=== PATIENT | female | born 1965 | race Caucasian/White ===

== ENCOUNTER → 2016-05-05 | Outpatient (CLI) | payer BC, OTHER | LOC: RAD 20:31 | PROVIDERS: ATTEND Specialist | DX: G35 Multiple sclerosis (principal) | CPT/HCPCS: 82565; 70553; A9577 ==

== ENCOUNTER → 2016-05-08 | Outpatient (CLI) | payer BC, OTHER ==
[2016-05-08 14:21] LABS: HEMATOCRIT 43.5 % (36.0-47.0); HEMOGLOBIN 14.7 g/dL (12.0-15.5); HGB HCT DIFFERENCE 0.6; MEAN CORPUSCULAR HEMOGLOBIN 32.1 pg (27.0-33.4); MEAN CORPUSCULAR HGB CONC 33.9 g/dL (32.0-36.0); MEAN CORPUSCULAR VOLUME 95 fl (80-97); RED CELL DISTRIBUTION WIDTH 13.8 % (11.5-14.0); WHITE BLOOD COUNT 5.1 10^3/uL (4.0-10.5)
[2016-05-08 14:44] LABS: POTASSIUM 5.1 mmol/L (3.6-5.0); SODIUM 142.3 mmol/L (137-145)
== END ==
LOC: OD 12:59
PROVIDERS: ATTEND Specialist
DX: G35 Multiple sclerosis (principal)
CPT/HCPCS: 36415; 80051; 85027

== ENCOUNTER → 2016-07-19 | Outpatient (CLI) | payer BC, OTHER | LOC: OD 13:06 | PROVIDERS: ATTEND Urology | DX: N20.0 Calculus of kidney (principal) | CPT/HCPCS: 74000 ==

== ENCOUNTER → 2016-08-08 | Outpatient (CLI) | payer BC, OTHER ==
--- NOTE | 2016-08-08 10:25 | ST Modified Barium Swallow ---
Recommendation - Recommendations Recommendations: 1) DIET: recommend mechanical soft foods cut meats and thin liquids. 2) STRATEGIES- alternate bites and sips to clear trace-mild residuals of puree and soft foods from valleculae. 3) Recommend consider OP ST eval and brief coarse of treatment for pt reports of mild intermittent dysarthria and observed mild oropharyngeal dysphagia during MBSS. 4) Pt reports some difficulty with larger pills which she states cannot be crushed, ST recommends taking with puree. SUMMARY: Pt presents witha mild oropharyngeal dysphagia characterized by mildly reduced base of tongue and pressure generation resulting in trace residuals of soft solids and mild residuals of puree, which was observed to clear with liquid wash. No penetration or aspiration observed during MBSS. Medical Diagnoses - Medical Diagnoses Medical Diagnosis Description & ICD-10 Code(s): dysphagia R13.10 Other Medical Diagnoses/Co-Morbidities: pt reports-MS, anxiety, intermittent slurred speech - ICD-10 Tx Diagnosis Coding (1) Dysphagia, oropharyngeal phase ICD-10 Code(s): R13.12 - DYSPHAGIA, OROPHARYNGEAL PHASE ST Modified Barium Swallow - General Date: 08/08/16 Referring Physician: Dr Figueroa Risks/Precautions: None Date of Onset: 05/11/16 Reason for Referral: dysphagia - History History obtained from: Patient -: Medical - Pt reports history of MS with recent 2-4 months of difficulty swallowing pills, meats, and "tough" foods. Pt reports coughing occasionally with PO intake, and "rarely" coughing at night on "saliva". Pt reports globus sensation in mid neck with PO intake. Pt denies history of PNA or bronchitis and denies choking while eating. Pt reports taking medication for reflux however pt denies reflux, pt reports doctor recommended medication and she has "just been taking". Pt also reports within the last year she has noted intermittent slurred speech. PMHx: MS diagnosed in 1998, "possible anxiety", and "inflammation of the ribs and sternum". Medications: Aspirin, Nexium, keppra, zonegran, klonopin, diazepam, adderall, stadol Allergies: none reported - Functional Status Prior Functional Status: INDEPENDENT: feeding Current Functional Limitations: feeding - Subjective Patient/caregiver goal(s): safe swallow, r/o aspiration Cognitive-Linguistic Function: WNL Speech Intelligibility: Mildly dysarthric - pt's speech presents mostly at 100% intelligible, however noted x3 throughout history intake impresice consonants and slurred speech which were observed to mildly reduce speech intelligibility. Current Nutritional Means: PO Current PO diet: Regular Current symptoms: Coughing, c/o Globus sensation Pain: 0/5 - Objective Assessment: Upright, Left Lateral - Food Trials Used Food trials used: Thin liquids, Pureed, Soft solids The patient: Was Able to Self Feed - Oral-Motor Skills Dentition: Full Velo-pharyngeal function: Unremarkable Laryngeal Function: Volitional Cough, Volitional Swallow - Assessment Oral prep: Normal Labial closure: Adequate Leakage: None Mastication: Adequate Lingual Movement: Normal Oral stage: Normal for this Procedure - Pharyngeal Stage Initiation of Pharyngeal Stage Reflex: Normal Decreased laryngeal elevation: No Reduced Velopharyngeal Closure: no Reduced pressure generation: Yes - mild reduced tongue-based retraction: Yes - mild Pre-swallow pooling in valleculae: None Pre-Swallow pooling in pyriforms: None Reduced Thyro-Hyoid approximation: No Reduced epiglottic excursion: No Reduced pharyngeal peristalsis/contraction: No Post-swallow residulas vallecular: Mild - trace-mild Post-Swallow residuals in pyriforms: None - Fall Risk Assessment Medications/Conditions that increase fall risks include: Antidepressants, sedatives, anti-arrhythmic, diuretic, benzodiazipenes, neuroleptics. BP regulation problems, cardiac problems, balance or gait deficits, neurological problems. Is patient considered at risk for falls: no Fall Risk Actions Taken: No action needed - Behavioral Observations During evaluation process patient: was pleasant, was cooperative, able to answer questions, provided medical history - Treatment / Educational Needs: Treatment/Education Needs: Treatment consisted of patient education on the role of the Speech Pathologist. Patient's plan of care and golas were communicated as well as scheduling and attendance policies. Recommendations for initial home program were shared. Patient demonstrated understanding and verbalized agreement. Initial home program recommendations: Pt was provided with verbal and written education on mechanical soft guidlines, reflux precautions, and recommendations from MBSS. - Impression/Summary Laryngeal Penetration: No Tracheal Aspiration: no Patient presents with: Oral-Pharyngeal dysph. - mild Risk of Aspiration: Minimal - Recommendations NPO: no Solid diet recommendations: Mechanical Soft, Chopped Meat Liquid Diet Modification: Thin Pt/Family education and followup with MD: Yes Dysphagia therapy with INTELLIGENCE OFFICER: yes, dysphagia therapy Recommended techniques: Fully Upright During Meal, Alternate Bites/Sips Supervision: Independent Information, Precautions and Recommendations: Patient (Written), Patient (Verbal ) - Time Total Time: 30 - Plan of Care Strategies to optimize patient understanding include:: ongoing assessment of educational needs, implementation of educational strategies, and re-education. - - -: Thank you for the opportunity to work with this patient and his/her family. Should you have any questions about this patient's plan or progress, I can be reached at [phone]. Charge G Code? - - -: No
== END ==
LOC: RAD 07:07
PROVIDERS: ATTEND Specialist
DX: R13.10 Dysphagia, unspecified (principal)
CPT/HCPCS: 74230

== ENCOUNTER → 2016-09-21 | Outpatient (CLI) | payer BC, OTHER ==
[2016-09-21 15:21] VITALS: BP 119/74
--- NOTE | 2016-09-22 08:50 | RADIOLOGY REPORT (SQ) ---
EXAM DESCRIPTION: MRI HEAD COMBO COMPLETED DATE/TIME: 09/21/2016 9:44 pm REASON FOR STUDY: MULTIPLE SCLEROSIS G35 MULTIPLE SCLEROSIS COMPARISON: 05/05/2016 TECHNIQUE: Multiplanar imaging includes noncontrasted T1, T2, FLAIR, diffusion with ADC map and post gadolinium contrast T1 sequences. Images stored on PACS. CONTRAST TYPE AND DOSE: 15 mL Multihance. RENAL FUNCTION: GFR > 60. LIMITATIONS: None. FINDINGS: ANATOMY: No anomalies. Normal vascular flow voids. Pituitary fossa normal. CSF SPACES: Normal in size and contour. No hemorrhage. CEREBRUM: 6-8 subcentimeter foci of increased signal in the white matter primarily frontal lobe. No new lesions. None of the lesions enhance. No hemorrhage or mass effect. POSTERIOR FOSSA: No signal alteration. No hemorrhage. No edema, masses, or mass effect. Internal deuce tory canals, cerebellopontine angles, mastoids normal. No enhancing lesions. No abnormal enhancement post contrast. DIFFUSION IMAGING: Negative for acute or subacute infarction. ORBITS: No masses. Globes normal. PARANASAL SINUSES: No fluid levels. Mucosa normal. OTHER: No other significant finding. IMPRESSION: Quiescent white matter lesions consistent with clinical history. No evidence of active demyelination. TECHNICAL DOCUMENTATION: JOB ID: [id number]- All Rights Reserved
== END ==
LOC: RAD 19:31
PROVIDERS: ATTEND Specialist
DX: G35 Multiple sclerosis (principal)
CPT/HCPCS: 82565; 70553; A9577

== ENCOUNTER → 2016-09-25 | Outpatient (CLI) | payer BC, OTHER ==
[2016-09-27 07:05] LABS: LYME DISEASE IGG AND IGM AB <0.91 ISR (0.00-0.90)
== END ==
LOC: OD 11:34
PROVIDERS: ATTEND Specialist
DX: R51 Headache (principal); G35 Multiple sclerosis; E53.8 Deficiency of other specified B group vitamins
CPT/HCPCS: 36415; 80074; 82607; 86617; 86618

== ENCOUNTER → 2016-10-09 | Outpatient (CLI) | payer BC, OTHER ==
[2016-10-09 13:12] LABS: HEMATOCRIT 41.8 % (36.0-47.0); HEMOGLOBIN 13.7 g/dL (12.0-15.5); HGB HCT DIFFERENCE -0.7; MEAN CORPUSCULAR HEMOGLOBIN 31.2 pg (27.0-33.4); MEAN CORPUSCULAR HGB CONC 32.7 g/dL (32.0-36.0); MEAN CORPUSCULAR VOLUME 95 fl (80-97); RED BLOOD COUNT 4.39 10^6/uL (3.72-5.28); RED CELL DISTRIBUTION WIDTH 13.3 % (11.5-14.0); WHITE BLOOD COUNT 6.5 10^3/uL (4.0-10.5)
== END ==
LOC: OD 12:24
PROVIDERS: ATTEND Specialist
DX: G35 Multiple sclerosis (principal)
CPT/HCPCS: 36415; 80074; 84460; 85027

== ENCOUNTER → 2016-10-12 | Outpatient (CLI) | payer BC, OTHER ==
--- NOTE | 2016-10-12 12:20 | RADIOLOGY REPORT (SQ) ---
EXAM DESCRIPTION: CHEST PA/LATERAL COMPLETED DATE/TIME: 10/12/2016 11:34 am REASON FOR STUDY: COUGH COMPARISON: Two-view chest 08/03/2015 CT chest 07/29/2008 EXAM PARAMETERS: NUMBER OF VIEWS: two views TECHNIQUE: Digital Frontal and Lateral radiographic views of the chest acquired. RADIATION DOSE: NA LIMITATIONS: none FINDINGS: LUNGS AND PLEURA: No opacities, masses or pneumothorax. No pleural effusion. MEDIASTINUM AND HILAR STRUCTURES: No masses or contour abnormalities. HEART AND VASCULAR STRUCTURES: Heart normal size. No evidence for failure. BONES: No acute findings. HARDWARE: None in the chest. OTHER: No other significant finding. IMPRESSION: NO SIGNIFICANT RADIOGRAPHIC FINDING IN THE CHEST. TECHNICAL DOCUMENTATION: JOB ID: [id number] [employer]- All Rights Reserved
== END ==
LOC: OD 11:16
PROVIDERS: ATTEND Family Medicine Geriatric Medicine
DX: R05 Cough (principal)
CPT/HCPCS: 71020

== ENCOUNTER → 2016-11-15 | Outpatient (CLI) | payer BC, OTHER ==
[2016-11-15 08:49] LABS: ABSOLUTE EOSINOPHILS # (AUTO) 0.2 10^3/uL (0.0-0.6); ABSOLUTE MONOCYTES (AUTO) 0.4 10^3/uL (0.1-1.4); ABSOLUTE NEUT (AUTO) 2.7 10^3/uL (1.7-8.2); BASOPHILS % (AUTO) 0.9 % (0-2); EOSINOPHILS % (AUTO) 3.8 % (0-6); HEMATOCRIT 41.6 % (36.0-47.0); HEMOGLOBIN 14.1 g/dL (12.0-15.5); HGB HCT DIFFERENCE 0.7; MEAN CORPUSCULAR HEMOGLOBIN 32.7 pg (27.0-33.4); MEAN CORPUSCULAR HGB CONC 33.9 g/dL (32.0-36.0); MEAN CORPUSCULAR VOLUME 96 fl (80-97); RED BLOOD COUNT 4.32 10^6/uL (3.72-5.28); RED CELL DISTRIBUTION WIDTH 13.4 % (11.5-14.0); SEGMENTED NEUTROPHILS % (AUTO) 62.3 % (42-78); WHITE BLOOD COUNT 4.3 10^3/uL (4.0-10.5)
[2016-11-15 09:13] LABS: ALANINE AMINOTRANSFERASE 23 U/L (9-52); ALBUMIN 4.1 g/dL (3.5-5.0); ALKALINE PHOSPHATASE 77 U/L (38-126); ANION GAP 13 (5-19); ASPARTATE AMINO TRANSFERASE 21 U/L (14-36); BILIRUBIN,DIRECT 0.4 mg/dL (0.0-0.4); BILIRUBIN,TOTAL 0.5 mg/dL (0.2-1.3); BLOOD UREA NITROGEN 13 mg/dL (7-20); CALCIUM 9.6 mg/dL (8.4-10.2); CARBON DIOXIDE 22 mmol/L (22-30); CHLORIDE 109 mmol/L (98-107); CREATININE RESULT 0.74 mg/dL (0.52-1.25); GLUCOSE 89 mg/dL (75-110); POTASSIUM 3.7 mmol/L (3.6-5.0); SODIUM 143.6 mmol/L (137-145); TOTAL PROTEIN 6.9 g/dL (6.3-8.2)
== END ==
LOC: OD 08:09
PROVIDERS: ATTEND Family Medicine Geriatric Medicine
DX: E78.5 Hyperlipidemia, unspecified (principal); E66.9 Obesity, unspecified; G35 Multiple sclerosis
CPT/HCPCS: 36415; 80053; 84443; 85025

== ENCOUNTER 2016-12-19 11:27 | Day surgery (SDC) | payer BC, OTHER ==
--- NOTE | 2016-12-18 17:09 | RADIOLOGY REPORT (SQ) ---
EXAM DESCRIPTION: KUB COMPLETED DATE/TIME: 12/18/2016 4:49 pm REASON FOR STUDY: CALCULUS OF KIDNEY N20.1 CALCULUS OF URETER COMPARISON: 07/19/2016. NUMBER OF VIEWS: One view. TECHNIQUE: AP supine digital radiograph of the abdomen. LIMITATIONS: None. FINDINGS: CALCIFICATIONS: RIGHT KIDNEY: None. RIGHT URETER: No calcifications in the expected location of the ureter. LEFT KIDNEY: 7 mm calculus in the lower pole unchanged. LEFT URETER: No calcifications in the expected location of the ureter. BLADDER: No suspicious calcifications in the pelvis. BOWEL GAS PATTERN AND SOFT TISSUES: Normal bowel gas pattern. No masses or organomegaly. BONES: No acute fracture. No worrisome bone lesions. OTHER: None. IMPRESSION: 7 MM CALCULUS IN THE LOWER POLE OF LEFT KIDNEY UNCHANGED. TECHNICAL DOCUMENTATION: JOB ID: [id number] [employer]- All Rights Reserved
[2016-12-18 18:01] LABS: HEMOGLOBIN 14.4 g/dL (12.0-15.5); HGB HCT DIFFERENCE 1.2; MEAN CORPUSCULAR HEMOGLOBIN 32.4 pg (27.0-33.4); MEAN CORPUSCULAR HGB CONC 34.2 g/dL (32.0-36.0); MEAN CORPUSCULAR VOLUME 95 fl (80-97); RED BLOOD COUNT 4.43 10^6/uL (3.72-5.28); RED CELL DISTRIBUTION WIDTH 13.1 % (11.5-14.0)
[2016-12-18 18:14] LABS: APPEARANCE,URINE CLEAR; BILIRUBIN,URINE NEGATIVE (NEGATIVE); GLUCOSE, URINE NEGATIVE (NEGATIVE); KETONES,URINE NEGATIVE (NEGATIVE); LEUKOCYTE ESTERASE,URINE NEGATIVE (NEGATIVE); NITRITE,URINE NEGATIVE (NEGATIVE); PROTEIN,URINE NEGATIVE (NEGATIVE); URINE SPECIFIC GRAVITY 1.005; UROBILINOGEN,URINE NEGATIVE mg/dL (<2.0)
--- NOTE | 2016-12-18 19:27 | EKG REPORT ---
SEVERITY:- NORMAL ECG - SINUS RHYTHM : Confirmed by: Enrique Dhaliwal MD 18-Dec-2016 19:25:55
== END 2016-12-19 13:01 ==
LOC: SC 11:27
PROVIDERS: ATTEND Urology
DX: N20.0 Calculus of kidney (principal)
CPT/HCPCS: 36415; 74000; 81001; 85027; 93005; 93010

== ENCOUNTER → 2017-01-03 | Outpatient (CLI) | payer BC, OTHER ==
[2017-01-03 10:00] LABS: HEMATOCRIT 39.9 % (36.0-47.0); HEMOGLOBIN 13.7 g/dL (12.0-15.5); HGB HCT DIFFERENCE 1.2; MEAN CORPUSCULAR HEMOGLOBIN 32.3 pg (27.0-33.4); MEAN CORPUSCULAR HGB CONC 34.3 g/dL (32.0-36.0); MEAN CORPUSCULAR VOLUME 94 fl (80-97); RED BLOOD COUNT 4.24 10^6/uL (3.72-5.28); WHITE BLOOD COUNT 6.6 10^3/uL (4.0-10.5)
[2017-01-03 10:34] LABS: ALANINE AMINOTRANSFERASE 32 U/L (9-52); ALBUMIN 3.9 g/dL (3.5-5.0); ALKALINE PHOSPHATASE 68 U/L (38-126); ASPARTATE AMINO TRANSFERASE 14 U/L (14-36); BILIRUBIN,DIRECT 0.3 mg/dL (0.0-0.4); BILIRUBIN,TOTAL 0.4 mg/dL (0.2-1.3); TOTAL PROTEIN 5.8 g/dL (6.3-8.2)
== END ==
LOC: OD 09:00
PROVIDERS: ATTEND Specialist
DX: G35 Multiple sclerosis (principal)
CPT/HCPCS: 36415; 80076; 85027

== ENCOUNTER → 2017-05-14 | Outpatient (CLI) | payer BC, OTHER ==
[2017-05-14 12:41] LABS: POTASSIUM 4.6 mmol/L (3.6-5.0)
== END ==
LOC: OD 11:06
PROVIDERS: ATTEND Specialist
DX: R56.9 Unspecified convulsions (principal)
CPT/HCPCS: 36415; 80051; 80177

== ENCOUNTER → 2017-08-06 | Outpatient (CLI) | payer BC, OTHER ==
[2017-08-06 08:07] LABS: HEMATOCRIT 43.1 % (36.0-47.0); HEMOGLOBIN 14.4 g/dL (12.0-15.5); MEAN CORPUSCULAR HEMOGLOBIN 31.5 pg (27.0-33.4); MEAN CORPUSCULAR HGB CONC 33.6 g/dL (32.0-36.0); MEAN CORPUSCULAR VOLUME 94 fl (80-97); PLATELET COUNT 227 10^3/uL (150-450); RED BLOOD COUNT 4.59 10^6/uL (3.72-5.28); RED CELL DISTRIBUTION WIDTH 13.7 % (11.5-14.0); WHITE BLOOD COUNT 5.2 10^3/uL (4.0-10.5)
[2017-08-06 08:11] LABS: HEMATOCRIT 43.1 % (36.0-47.0); HEMOGLOBIN 14.4 g/dL (12.0-15.5); MEAN CORPUSCULAR HEMOGLOBIN 31.5 pg (27.0-33.4); MEAN CORPUSCULAR HGB CONC 33.6 g/dL (32.0-36.0); MEAN CORPUSCULAR VOLUME 94 fl (80-97); PLATELET COUNT 227 10^3/uL (150-450); RED BLOOD COUNT 4.59 10^6/uL (3.72-5.28); RED CELL DISTRIBUTION WIDTH 13.7 % (11.5-14.0); WHITE BLOOD COUNT 5.2 10^3/uL (4.0-10.5)
[2017-08-06 08:35] LABS: ALANINE AMINOTRANSFERASE 23 U/L (9-52); ANION GAP 11 (5-19); ASPARTATE AMINO TRANSFERASE 25 U/L (14-36); BLOOD UREA NITROGEN 13 mg/dL (7-20); CALCIUM 9.5 mg/dL (8.4-10.2); CARBON DIOXIDE 29 mmol/L (22-30); CHLORIDE 107 mmol/L (98-107); CHOLESTEROL 207.36 mg/dL (0-200); GLUCOSE 97 mg/dL (75-110); POTASSIUM 5.1 mmol/L (3.6-5.0); SODIUM 146.5 mmol/L (137-145); TRIGLYCERIDES 91 mg/dL (<150)
[2017-08-06 08:46] LABS: DIRECT LDL 87 mg/dL (<100)
[2017-08-06 08:51] LABS: ALANINE AMINOTRANSFERASE 23 U/L (9-52); ALKALINE PHOSPHATASE 75 U/L (38-126); ASPARTATE AMINO TRANSFERASE 25 U/L (14-36); BILIRUBIN,TOTAL 0.3 mg/dL (0.2-1.3); TOTAL PROTEIN 6.5 g/dL (6.3-8.2)
[2017-08-06 08:54] LABS: BILIRUBIN,DIRECT 0.3 mg/dL (0.0-0.4)
[2017-08-06 09:06] LABS: ALBUMIN 3.9 g/dL (3.5-5.0)
[2017-08-06 12:58] LABS: ABSOLUTE MONOCYTES # (MANUAL) 0.3 10^3/uL (0.1-1.4); ABSOLUTE NEUTROPHILS# (MANUAL) 3.8 10^3/uL (1.7-8.2); BASOPHILS % (MANUAL) 0 % (0-2); EOSINOPHILS % (MANUAL) 2 % (0-6); LYMPHOCYTES % (MANUAL) 19 % (13-45); MONOCYTES % (MANUAL) 6 % (3-13); SEGMENTED NEUTROPHILS % (MAN) 73 % (42-78); TOTAL CELLS COUNTED 100
[2017-08-06 12:59] LABS: PLATELET COMMENT ADEQUATE; POLYCHROMASIA SLIGHT
== END ==
LOC: OD 07:19
PROVIDERS: ATTEND Family Medicine Geriatric Medicine
DX: E78.5 Hyperlipidemia, unspecified (principal); I10 Essential (primary) hypertension; G35 Multiple sclerosis; Z79.899 Other long term (current) drug therapy
CPT/HCPCS: 36415; 80048; 80061; 80076; 84450; 84460; 85025; 85027; 87798

== ENCOUNTER → 2017-08-23 | Outpatient (CLI) | payer BC, OTHER ==
--- NOTE | 2017-08-23 13:12 | RADIOLOGY REPORT (SQ) ---
EXAM DESCRIPTION: U/S ABDOMEN LIMITED W/O DOP COMPLETED DATE/TIME: 08/23/2017 11:52 am REASON FOR STUDY: RUQ PAIN (R10.11) R10.11 RIGHT UPPER QUADRANT PAIN COMPARISON: None. TECHNIQUE: Dynamic and static grayscale images acquired of the abdomen and recorded on PACS. Additio nal selected color Doppler and spectral images recorded. LIMITATIONS: None. FINDINGS: PANCREAS: No masses. Visualized pancreatic duct normal caliber. LIVER: 14.1 cm. Increased echogenicity. LIVER VASCULATURE: Normal directional flow of the main portal vein and hepatic veins. GALLBLADDER: Small gallstones are present. Normal wall thickness. ULTRASOUND-DETECTED MILNER'S SIGN: Negative. INTRAHEPATIC DUCTS AND COMMON DUCT: CBD and intrahepatic ducts normal caliber. No filling defects. INFERIOR VENA CAVA: Patent. AORTA: No aneurysm. RIGHT KIDNEY: Normal size, 9.4 cm. Normal echogenicity. No solid or suspicious masses. No hydronephr osis. No calcifications. PERITONEAL AND RIGHT PLEURAL SPACE: No ascites or effusions. OTHER: No other significant findings. IMPRESSION: Cholelithiasis with no evidence of cholecystitis. Normal common bile duct. TECHNICAL DOCUMENTATION: JOB ID: [id number] [employer]- All Rights Reserved Reading location - IP/workstation name: [email or web address]
== END ==
LOC: RAD 11:00
PROVIDERS: ATTEND Family Medicine Geriatric Medicine
DX: K80.20 Calculus of gallbladder without cholecystitis without obstruction (principal); R10.11 Right upper quadrant pain
CPT/HCPCS: 76705

== ENCOUNTER → 2017-09-12 | Outpatient (CLI) | payer BC, OTHER ==
[2017-09-12 18:51] LABS: ABSOLUTE EOSINOPHILS # (AUTO) 0.2 10^3/uL (0.0-0.6); ABSOLUTE MONOCYTES (AUTO) 0.5 10^3/uL (0.1-1.4); ABSOLUTE NEUT (AUTO) 4.6 10^3/uL (1.7-8.2); BASOPHILS % (AUTO) 0.6 % (0-2); EOSINOPHILS % (AUTO) 2.5 % (0-6); HEMATOCRIT 41.7 % (36.0-47.0); HEMOGLOBIN 14.1 g/dL (12.0-15.5); LYMPHOCYTES % (AUTO) 16.3 % (13-45); MEAN CORPUSCULAR HEMOGLOBIN 31.9 pg (27.0-33.4); MEAN CORPUSCULAR HGB CONC 33.8 g/dL (32.0-36.0); MEAN CORPUSCULAR VOLUME 94 fl (80-97); MONOCYTES % (AUTO) 8.3 % (3-13); PLATELET COUNT 235 10^3/uL (150-450); RED BLOOD COUNT 4.42 10^6/uL (3.72-5.28); RED CELL DISTRIBUTION WIDTH 13.3 % (11.5-14.0); SEGMENTED NEUTROPHILS % (AUTO) 72.3 % (42-78); TOTAL CELLS COUNTED % (AUTO) 100 %; WHITE BLOOD COUNT 6.4 10^3/uL (4.0-10.5)
--- NOTE | 2017-09-12 18:56 | RADIOLOGY REPORT (SQ) ---
EXAM DESCRIPTION: SACRUM AND COCCYX COMPLETED DATE/TIME: 09/12/2017 5:23 pm REASON FOR STUDY: LUMBAR PAIN M54.5 LOW BACK PAIN COMPARISON: None. NUMBER OF VIEWS: Three views. TECHNIQUE: AP, lateral, and tilt views of the sacrum and coccyx. LIMITATIONS: None. FINDINGS: MINERALIZATION: Normal. BONES: No acute fracture or dislocation. No worrisome bone lesions. SOFT TISSUES: No soft tissue swelling. No foreign body. OTHER: No other significant finding. IMPRESSION: NEGATIVE STUDY OF THE SACRUM AND COCCYX. TECHNICAL DOCUMENTATION: JOB ID: [id number] [employer]- All Rights Reserved Reading location - IP/workstation name: [email or web address]
--- NOTE | 2017-09-12 19:02 | RADIOLOGY REPORT (SQ) ---
EXAM DESCRIPTION: LUMBAR SPINE COMPLETE COMPLETED DATE/TIME: 09/12/2017 5:23 pm REASON FOR STUDY: LUMBAR PAIN M54.5 LOW BACK PAIN COMPARISON: None. NUMBER OF VIEWS: Five views including obliques. TECHNIQUE: AP, lateral, oblique, and sacral radiographic images acquired of the lumbar spine. LIMITATIONS: None. FINDINGS: MINERALIZATION: Normal. SEGMENTATION: Normal. No transitional anatomy. ALIGNMENT: Mild dextroscoliosis. VERTEBRAE: Maintained height. No fracture or worrisome bone lesion. DISCS: Preserved height. No significant osteophytes or end plate irregularity. POSTERIOR ELEMENTS: Mild hypertrophic facet changes from L3-S1. HARDWARE: None in the spine. PARASPINAL SOFT TISSUES: Normal. PELVIS: Intact as visualized. No fractures or worrisome bone lesions. SI joints intact. OTHER: No other significant finding. IMPRESSION: Mild scoliosis. Mild facet arthropathy. TECHNICAL DOCUMENTATION: JOB ID: [id number] [employer]- All Rights Reserved Reading location - IP/workstation name: [email or web address]
[2017-09-12 19:03] LABS: ALANINE AMINOTRANSFERASE 24 U/L (9-52); ALBUMIN 4.4 g/dL (3.5-5.0); ALKALINE PHOSPHATASE 86 U/L (38-126); ANION GAP 12 (5-19); ASPARTATE AMINO TRANSFERASE 29 U/L (14-36); BILIRUBIN,DIRECT 0.5 mg/dL (0.0-0.4); BILIRUBIN,TOTAL 0.5 mg/dL (0.2-1.3); BLOOD UREA NITROGEN 14 mg/dL (7-20); CALCIUM 9.6 mg/dL (8.4-10.2); CARBON DIOXIDE 23 mmol/L (22-30); CHLORIDE 107 mmol/L (98-107); GLUCOSE 81 mg/dL (75-110); POTASSIUM 4.7 mmol/L (3.6-5.0); SODIUM 141.7 mmol/L (137-145); TOTAL PROTEIN 7.1 g/dL (6.3-8.2)
== END ==
LOC: OD 16:17
PROVIDERS: ATTEND Family Medicine Geriatric Medicine
DX: I10 Essential (primary) hypertension (principal); G35 Multiple sclerosis; Z79.899 Other long term (current) drug therapy; M54.5 Low back pain
CPT/HCPCS: 36415; 72110; 72220; 80053; 85025

== ENCOUNTER 2017-10-04 08:41 | Day surgery (SDC) | payer BC, OTHER ==
[2017-09-28 10:59] LABS: HEMATOCRIT 42.7 % (36.0-47.0); HEMOGLOBIN 14.4 g/dL (12.0-15.5); MEAN CORPUSCULAR HEMOGLOBIN 31.7 pg (27.0-33.4); MEAN CORPUSCULAR HGB CONC 33.7 g/dL (32.0-36.0); MEAN CORPUSCULAR VOLUME 94 fl (80-97); PLATELET COUNT 252 10^3/uL (150-450); RED BLOOD COUNT 4.55 10^6/uL (3.72-5.28); RED CELL DISTRIBUTION WIDTH 13.2 % (11.5-14.0); WHITE BLOOD COUNT 5.1 10^3/uL (4.0-10.5)
[2017-09-28 11:38] LABS: ALANINE AMINOTRANSFERASE 27 U/L (9-52); ALKALINE PHOSPHATASE 82 U/L (38-126); ANION GAP 11 (5-19); ASPARTATE AMINO TRANSFERASE 25 U/L (14-36); BILIRUBIN,DIRECT 0.4 mg/dL (0.0-0.4); BILIRUBIN,TOTAL 0.5 mg/dL (0.2-1.3); BLOOD UREA NITROGEN 8 mg/dL (7-20); CALCIUM 9.2 mg/dL (8.4-10.2); CARBON DIOXIDE 25 mmol/L (22-30); CHLORIDE 108 mmol/L (98-107); GLUCOSE 86 mg/dL (75-110); SODIUM 144.1 mmol/L (137-145); TOTAL PROTEIN 6.7 g/dL (6.3-8.2)
[2017-09-28 12:53] LABS: POTASSIUM 4.6 mmol/L (3.6-5.0)
[~2017-10-04 08:41] MED LIST: ACETAMINOPHEN 325 MG TABLET PO PRN; CEFOXITIN SODIUM 2 GM in DEXTROSE 5%-WATER 100 ML IV PRN; LACTATED RINGERS 1000 ML IV PRN; LIDOCAINE 0.5% INJ-PF (5 MG/ML) 50 ML SDV SUBCUT PRN
[2017-10-04] MEDS ORDERED: SCOPOLAMINE HYDROBROMIDE 1.5 MG PATCH.TD72 ONE (09:48)
[2017-10-04] MEDS ORDERED: BUPIVACAINE HCL 0.25 % INJ/PF (2.5 MG/1 ML) 30 ML VIAL ONE (10:16)
[2017-10-04] MEDS ORDERED: FENTANYL CITRATE INJ/PF 100 MCG/2 ML AMPUL ONE ×2 (10:21→10:22)
[2017-10-04] MEDS ORDERED: MIDAZOLAM 2 MG/2 ML INJ ONE (10:22)
[2017-10-04] MEDS ORDERED: PROPOFOL INJ 200 MG/20 ML VIAL IV ONE (10:22)
[2017-10-04] MEDS ORDERED: HYDROMORPHONE HCL INJ/PF 2 MG/ML AMPULE ONE (10:23)
[2017-10-04] MEDS: ACETAMINOPHEN 1,000 MG/100 ML RTUPB IV ONE ×2 (11:05→11:43)
[2017-10-04] MEDS ORDERED: SUGAMMADEX SODIUM 200 MG/2 ML SDV IV ONE (11:11)
[2017-10-04] MEDS ORDERED: DIPHENHYDRAMINE HCL 50 MG/ML VIAL IV PRN (11:42)
[2017-10-04] MEDS ORDERED: PROMETHAZINE HCL INJ 25 MG/1 ML VIAL IV PRN (11:42)
[2017-10-04] MEDS ORDERED: FENTANYL CITRATE INJ/PF 100 MCG/2 ML AMPUL IV PRN ×3 (11:42)
--- NOTE | 2017-10-04 12:28 | Operative Report ---
Nonrecallable Operative Report DATE OF SURGERY: 10/04/17 PREOPERATIVE DIAGNOSIS: Symptomatic cholelithiasis POSTOPERATIVE DIAGNOSIS: Same as above OPERATION: Laparoscopic cholecystectomy SURGEON: WILBUR FERRELL ANESTHESIA: GA TISSUE REMOVED OR ALTERED: Gallbladder COMPLICATIONS: None apparent ESTIMATED BLOOD LOSS: Minimal PROCEDURE: Drains/implants: Surgicel in the gallbladder fossa. Procedure in detail: After informed consent was obtained, the patient was laid in the supine position. The area of the abdomen was prepped and draped in a normal sterile fashion. A 15 blade scalpel was used to create a supraumbilical incision. This was deepened through the use of blunt dissection. The cicatrix was identified, grasped with a Gregg clamp, and retracted upwards. The linea alba fascia was incised sharply. The abdomen was entered sharply. The balloon trocar was inserted, and the pneumoperitoneum was achieved. Next, a 5 mm subxiphoid trocar was placed under direct laparoscopic visualization. 2 more 5 mm trochars were placed in the right upper quadrant in similar fashion. Atraumatic graspers were placed the 5 mm ports. The gallbladder was retracted cephalad and laterally. Dissection was begun in the triangle of Calot. The cystic duct and cystic artery were fully visualized and skeletonized, seeing the liver through the triangle. Once the critical view of safety was obtained, the cystic duct and cystic artery were clipped and cut with laparoscopic instruments. The gallbladder was then removed from liver using Bovie electrocautery. The gallbladder was then placed into an Endo Catch bag and pulled out through the umbilicus. Surgicel was placed in the gallbladder fossa to assist with hemostasis. The hilum was then inspected. The the hilum was free of any leakage of blood or bile. Once this was confirmed , the 5 mm trochars were removed under direct laparoscopic visualization. The supraumbilical trocar was removed, and pneumoperitoneum was relieved. The supraumbilical fascia was then closed using 0 Vicryl suture in a figure-of- eight fashion. The overlying skin was closed using 4-0 Vicryl Rapide suture in subcuticular fashion. Dressings were placed, and the procedure was concluded. All sponge, instrument, and needle counts were correct 2. Condition: Stable.
--- NOTE | 2017-10-04 12:30 | Discharge Summary ---
Discharge Summary (SDC) - Discharge Final Diagnosis: Symptomatic cholelithiasis Date of Surgery: 10/04/17 Discharge Date: 10/04/17 Condition: Stable Treatment or Instructions: Plains 10/325 mg p.o. every 6 hours as needed pain. No tub baths or swimming 2 weeks. Okay to shower on Sunday. Wash incisions with soap and water. Avoid alcohol. Referrals: JESICA SOLIS MD [Primary Care Provider] - Discharge Diet: As Tolerated Respiratory Treatments at Home: Deep Breathing/Coughing, Incentive Spirometer Discharge Activity: No Lifting Over 10 Pounds Home Care Assistance: None Needed Report the Following to Your Physician Immediately: Shortness of Breath, Nausea , Vomiting, Yellow Skin, Fever over 101 Degrees, Unusual Bleeding, Redness, Swelling, Warmth
[2017-10-04] MEDS: FENTANYL CITRATE INJ/PF 100 MCG/2 ML AMPUL ONE ×2 (12:33→12:50)
[2017-10-04] MEDS ORDERED: HYDROCODONE/ACETAMINOPHEN 10-325 MG TABLET PO PRN (12:44)
[2017-10-04] MEDS ORDERED: HYDROCODONE/ACETAMINOPHEN 10-325 MG TABLET ONE (13:29)
[2017-10-04 15:38] VITALS: BP 131/87
[2017-10-04] MEDS ORDERED: DEXAMETHASONE SOD PHOSPHATE INJ 4 MG/1 ML VIAL ONE (16:07)
[2017-10-04] MEDS ORDERED: SUCCINYLCHOLINE CHLORIDE INJ 200 MG/10 ML VIAL ONE (16:07)
[2017-10-04] MEDS ORDERED: PHENYLEPHRINE HCL INJ/PF 10 MG/1 ML SDV ONE (16:07)
[2017-10-04] MEDS ORDERED: ONDANSETRON HCL INJ/PF 4 MG/2 ML SDV ONE (16:07)
[2017-10-04] MEDS ORDERED: ROCURONIUM BROMIDE INJ 50 MG/5 ML VIAL IV ONE (16:07)
== END 2017-10-04 14:45 | disposition home or self-care (01) ==
LOC: OROUT 08:41
PROVIDERS: ATTEND Surgery
DX: K80.10 Calculus of gallbladder with chronic cholecystitis without obstruction (principal); G35 Multiple sclerosis; E78.00 Pure hypercholesterolemia, unspecified; E66.3 Overweight; G43.909 Migraine, unspecified, not intractable, without status migrainosus; Z79.899 Other long term (current) drug therapy; Z79.82 Long term (current) use of aspirin; Z68.38 Body mass index [BMI] 38.0-38.9, adult
CPT/HCPCS: 47562; 36415; 85027; 80076; 80048; 88342 ×2; 88304 ×2; J2250; J3490 ×2; J1100; J0694; J3010; J1170; J2370; J0330; J2405; J2704; J0131; 790

== ENCOUNTER → 2017-12-26 | Outpatient (CLI) | payer BC, OTHER ==
--- NOTE | 2017-12-26 17:40 | RADIOLOGY REPORT (SQ) ---
EXAM DESCRIPTION: RIBS RIGHT W/PA CHEST COMPLETED DATE/TIME: 12/26/2017 5:32 pm REASON FOR STUDY: RT RIB PAIN COMPARISON: None. TECHNIQUE: Frontal view of the chest and additional views of the right ribs acquired. NUMBER OF VIEWS: Five view. LIMITATIONS: None. FINDINGS: FRONTAL CXR: No pneumothorax. No pleural effusion. No atelectasis or infiltrates. RIBS: No displaced rib fractures. No lytic or blastic bony lesions. OTHER: No other significant finding. IMPRESSION: NO PNEUMOTHORAX. NO DISPLACED RIB FRACTURES. COMMENT: SITE OF TRAUMA/COMPLAINT MARKED/STAMP COMPLETED: YES. TECHNICAL DOCUMENTATION: JOB ID: [id number] [employer]- All Rights Reserved Reading location - IP/workstation name: [email or web address]
[2017-12-26 17:58] LABS: ALANINE AMINOTRANSFERASE 28 U/L (9-52); ALBUMIN 4.3 g/dL (3.5-5.0); ALKALINE PHOSPHATASE 106 U/L (38-126); ASPARTATE AMINO TRANSFERASE 24 U/L (14-36); BILIRUBIN,DIRECT 0.3 mg/dL (0.0-0.4); BILIRUBIN,TOTAL 0.4 mg/dL (0.2-1.3); TOTAL PROTEIN 7.1 g/dL (6.3-8.2)
== END ==
LOC: OD 17:05
PROVIDERS: ATTEND Family Medicine Geriatric Medicine
DX: R07.81 Pleurodynia (principal); R79.89 Other specified abnormal findings of blood chemistry; R68.89 Other general symptoms and signs
CPT/HCPCS: 36415; 80076

== ENCOUNTER → 2018-03-07 | Outpatient (CLI) | payer BC, OTHER ==
--- NOTE | 2018-03-07 10:23 | RADIOLOGY REPORT (SQ) ---
EXAM DESCRIPTION: KUB COMPLETED DATE/TIME: 03/07/2018 10:01 am REASON FOR STUDY: CALCULUS OF KIDNEY Z79.899 OTHER LONGTERM (CURRENT) DRUG THERAPY N20.0 CALCULUS OF KIDNEY COMPARISON: June 2015 NUMBER OF VIEWS: One view. TECHNIQUE: Supine radiographic image of the abdomen acquired. LIMITATIONS: None. FINDINGS: BOWEL GAS PATTERN: Normal bowel gas pattern. No dilated loops. CALCIFICATIONS: The previously described left renal calculus is again identified. No other definite renal or ureteric calculi are identified. SOFT TISSUES: No gross mass or suggestion of organomegaly. HARDWARE: None in the abdomen. BONES: No acute fracture. No worrisome bone lesions. OTHER: No other significant finding. IMPRESSION: The previously described left renal calculus is again identified and appears unchanged. No other renal or ureteric calculi are identified TECHNICAL DOCUMENTATION: JOB ID: [id number] [employer]- All Rights Reserved Reading location - IP/workstation name: [email or web address]
[2018-03-07 10:37] LABS: ABSOLUTE EOSINOPHILS # (AUTO) 0.1 10^3/uL (0.0-0.6); ABSOLUTE MONOCYTES (AUTO) 0.5 10^3/uL (0.1-1.4); ABSOLUTE NEUT (AUTO) 4.7 10^3/uL (1.7-8.2); BASOPHILS % (AUTO) 0.7 % (0-2); EOSINOPHILS % (AUTO) 2.2 % (0-6); HEMATOCRIT 43.9 % (36.0-47.0); HEMOGLOBIN 14.9 g/dL (12.0-15.5); LYMPHOCYTES % (AUTO) 15.2 % (13-45); MEAN CORPUSCULAR HEMOGLOBIN 31.8 pg (27.0-33.4); MEAN CORPUSCULAR VOLUME 94 fl (80-97); MONOCYTES % (AUTO) 7.8 % (3-13); PLATELET COUNT 255 10^3/uL (150-450); RED BLOOD COUNT 4.69 10^6/uL (3.72-5.28); RED CELL DISTRIBUTION WIDTH 13.2 % (11.5-14.0); SEGMENTED NEUTROPHILS % (AUTO) 74.1 % (42-78); TOTAL CELLS COUNTED % (AUTO) 100 %; WHITE BLOOD COUNT 6.3 10^3/uL (4.0-10.5)
[2018-03-07 10:58] LABS: ALANINE AMINOTRANSFERASE 42 U/L (9-52); ALBUMIN 3.9 g/dL (3.5-5.0); ALKALINE PHOSPHATASE 92 U/L (38-126); ANION GAP 9 (5-19); ASPARTATE AMINO TRANSFERASE 28 U/L (14-36); BILIRUBIN,DIRECT 0.2 mg/dL (0.0-0.4); BILIRUBIN,TOTAL 0.4 mg/dL (0.2-1.3); BLOOD UREA NITROGEN 12 mg/dL (7-20); CALCIUM 9.1 mg/dL (8.4-10.2); CARBON DIOXIDE 26 mmol/L (22-30); CHLORIDE 110 mmol/L (98-107); GLUCOSE 97 mg/dL (75-110); POTASSIUM 4.8 mmol/L (3.6-5.0); TOTAL PROTEIN 6.7 g/dL (6.3-8.2)
== END ==
LOC: OD 09:37
PROVIDERS: ATTEND Family Medicine Geriatric Medicine
DX: G35 Multiple sclerosis (principal); N20.0 Calculus of kidney; Z79.899 Other long term (current) drug therapy
CPT/HCPCS: 36415; 74018; 80053; 85025

== ENCOUNTER → 2018-07-17 | Outpatient (CLI) | payer BC, OTHER ==
[2018-07-17 08:44] LABS: ABSOLUTE BASOPHILS # (AUTO) 0.1 10^3/uL (0.0-0.2); ABSOLUTE EOSINOPHILS # (AUTO) 0.2 10^3/uL (0.0-0.6); ABSOLUTE LYMPHOCYTES (AUTO) 1.2 10^3/uL (0.5-4.7); ABSOLUTE MONOCYTES (AUTO) 0.5 10^3/uL (0.1-1.4); ABSOLUTE NEUT (AUTO) 5.3 10^3/uL (1.7-8.2); BASOPHILS % (AUTO) 0.9 % (0-2); EOSINOPHILS % (AUTO) 2.1 % (0-6); HEMATOCRIT 42.9 % (36.0-47.0); LYMPHOCYTES % (AUTO) 16.2 % (13-45); MEAN CORPUSCULAR HEMOGLOBIN 32.7 pg (27.0-33.4); MEAN CORPUSCULAR HGB CONC 34.8 g/dL (32.0-36.0); MEAN CORPUSCULAR VOLUME 94 fl (80-97); MONOCYTES % (AUTO) 7.6 % (3-13); PLATELET COUNT 276 10^3/uL (150-450); RED BLOOD COUNT 4.57 10^6/uL (3.72-5.28); RED CELL DISTRIBUTION WIDTH 13.3 % (11.5-14.0); SEGMENTED NEUTROPHILS % (AUTO) 73.2 % (42-78); TOTAL CELLS COUNTED % (AUTO) 100 %; WHITE BLOOD COUNT 7.2 10^3/uL (4.0-10.5)
[2018-07-17 09:19] LABS: ALANINE AMINOTRANSFERASE 35 U/L (9-52); ALBUMIN 3.7 g/dL (3.5-5.0); ALKALINE PHOSPHATASE 107 U/L (38-126); ANION GAP 8 (5-19); ASPARTATE AMINO TRANSFERASE 30 U/L (14-36); BILIRUBIN,DIRECT 0.3 mg/dL (0.0-0.4); BILIRUBIN,TOTAL 0.5 mg/dL (0.2-1.3); BLOOD UREA NITROGEN 14 mg/dL (7-20); CALCIUM 9.2 mg/dL (8.4-10.2); CARBON DIOXIDE 19 mmol/L (22-30); CHLORIDE 113 mmol/L (98-107); CHOLESTEROL 154.41 mg/dL (0-200); GLUCOSE 104 mg/dL (75-110); POTASSIUM 4.5 mmol/L (3.6-5.0); SODIUM 139.7 mmol/L (137-145); TOTAL PROTEIN 6.4 g/dL (6.3-8.2); TRIGLYCERIDES 97 mg/dL (<150)
[2018-07-17 09:32] LABS: DIRECT LDL 79 mg/dL (<100)
== END ==
LOC: OD 07:41
PROVIDERS: ATTEND Family Medicine Geriatric Medicine
DX: E78.5 Hyperlipidemia, unspecified (principal); E53.9 Vitamin B deficiency, unspecified; G35 Multiple sclerosis; Z79.899 Other long term (current) drug therapy
CPT/HCPCS: 36415; 80053; 80061; 82607; 84443; 85025

== ENCOUNTER → 2018-08-06 | Outpatient (CLI) | payer BC, OTHER ==
--- NOTE | 2018-08-06 14:48 | WOMENS IMAGING REPORT ---
EXAM DESCRIPTION: BILAT SCREENING MAMMO W/CAD COMPLETED DATE/TIME: 08/06/2018 7:14 am REASON FOR STUDY: ROUTINE BILATERAL SCREENING;Z12.31 Z12.31 ENCNTR SCREEN MAMMOGRAM FOR MALIGNANT N EOPLASM OF HAYLEE COMPARISON: No previous available TECHNIQUE: Standard craniocaudal and mediolateral oblique views of each breast recorded using [employer] l acquisition. LIMITATIONS: None. FINDINGS: Findings present which are benign by mammographic criteria. No suspicious masses, calcifi cations or architectural distortion. Pertinent benign findings: Benign microcalcifications bilaterally Read with the assistance of CAD. .[facility] - R2 Track Helper Version 9.2 Benign mammographic findings may include one or more of the following: Smooth masses, popcorn/rim/co arse calcifications, asymmetries, post-procedure changes, and lesions with long-standing stability. IMPRESSION: BENIGN MAMMOGRAPHIC FINDINGS. BIRADS 2 BREAST DENSITY: b. There are scattered areas of fibroglandular density. BIRAD: 2 BENIGN FINDING(S) RECOMMENDATION: ROUTINE SCREENING COMMENT: The patient has been notified of the results by letter per SA requirements. Additional no tification policies are in place for contacting patient with suspicious or incomplete findings. Quality ID #[id number]: The [employer] recommends an annual screening mammogram for women aged 40 years or over. This facility utilizes a reminder system to ensure that all patients receive reminder letters, and/or direct phone calls for appointments. This includes reminders for routine scr eening mammograms, diagnostic mammograms, or other Breast Imaging Interventions when appropriate. Th is patient will be placed in the appropriate reminder system. TECHNICAL DOCUMENTATION: FINDING NUMBER: (1) ASSESSMENT: (1) JOB ID: [id number] [employer]- All Rights Reserved Reading location - IP/workstation name: [email or web address]-
== END ==
LOC: WI 07:07
PROVIDERS: ATTEND Family Medicine Geriatric Medicine
DX: Z12.31 Encounter for screening mammogram for malignant neoplasm of breast (principal)
CPT/HCPCS: 77067

== ENCOUNTER → 2019-05-26 | Outpatient (CLI) | payer BC, OTHER ==
[2019-05-26 16:42] LABS: ABSOLUTE EOSINOPHILS # (AUTO) 0.1 10^3/uL (0.0-0.6); ABSOLUTE LYMPHOCYTES (AUTO) 1.1 10^3/uL (0.5-4.7); ABSOLUTE MONOCYTES (AUTO) 0.6 10^3/uL (0.1-1.4); ABSOLUTE NEUT (AUTO) 4.5 10^3/uL (1.7-8.2); BASOPHILS % (AUTO) 0.4 % (0-2); EOSINOPHILS % (AUTO) 1.3 % (0-6); HEMATOCRIT 45.2 % (36.0-47.0); HEMOGLOBIN 15.7 g/dL (12.0-15.5); LYMPHOCYTES % (AUTO) 17.7 % (13-45); MEAN CORPUSCULAR HEMOGLOBIN 33.3 pg (27.0-33.4); MEAN CORPUSCULAR HGB CONC 34.7 g/dL (32.0-36.0); MEAN CORPUSCULAR VOLUME 96 fl (80-97); MONOCYTES % (AUTO) 9.4 % (3-13); PLATELET COUNT 249 10^3/uL (150-450); RED BLOOD COUNT 4.72 10^6/uL (3.72-5.28); RED CELL DISTRIBUTION WIDTH 14.1 % (11.5-14.0); SEGMENTED NEUTROPHILS % (AUTO) 71.2 % (42-78); TOTAL CELLS COUNTED % (AUTO) 100 %; WHITE BLOOD COUNT 6.3 10^3/uL (4.0-10.5)
== END ==
LOC: OD 16:10
PROVIDERS: ATTEND Family Medicine Geriatric Medicine
DX: K62.5 Hemorrhage of anus and rectum (principal); R10.9 Unspecified abdominal pain; Z79.899 Other long term (current) drug therapy
CPT/HCPCS: 36415; 82150; 83690; 85025

== ENCOUNTER → 2019-06-05 | Outpatient (CLI) | payer BC, OTHER ==
--- NOTE | 2019-06-05 12:38 | RADIOLOGY REPORT (SQ) ---
EXAM DESCRIPTION: U/S ABDOMEN COMPLETE W/DOPPLER COMPLETED DATE/TIME: 06/05/2019 10:06 am REASON FOR STUDY: R10.9 UNSPECIFIED ABDOMINAL PAIN R10.9 UNSPECIFIED ABDOMINAL PAIN COMPARISON: 2017. TECHNIQUE: Dynamic and static grayscale images acquired of the abdomen and recorded on PACS. Additio nal selected color Doppler and spectral images recorded. Note: Study does not meet criteria for complete doppler/duplex scan LIMITATIONS: None. FINDINGS: PANCREAS: No masses. Visualized pancreatic duct normal caliber. LIVER: Echogenic, fatty. Normal size. No gross mass. LIVER VASCULATURE: Normal directional flow of the main portal vein and hepatic veins. GALLBLADDER: Surgically absent. ULTRASOUND-DETECTED MILNER'S SIGN: Negative. INTRAHEPATIC DUCTS AND COMMON DUCT: CBD and intrahepatic ducts normal caliber. No filling defects. INFERIOR VENA CAVA: Normal flow. AORTA: No aneurysm. RIGHT KIDNEY:No mass or hydronephrosis. Echogenic foci likely reflect vascular calcifications. LEFT KIDNEY: Similar findings to the right kidney. SPLEEN: Normal size. No solid masses. PERITONEAL AND PLEURAL SPACES: No ascites or effusions. OTHER: No other significant finding. IMPRESSION: 1. Fatty liver. 2. No acute or suspicious findings. Other changes as above. TECHNICAL DOCUMENTATION: JOB ID: [id number] 2010 [employer]- All Rights Reserved Reading location - IP/workstation name: [email or web address]
== END ==
LOC: RAD 09:28
PROVIDERS: ATTEND Family Medicine Geriatric Medicine
DX: R10.9 Unspecified abdominal pain (principal); K76.0 Fatty (change of) liver, not elsewhere classified
CPT/HCPCS: 76700; 93976

== ENCOUNTER → 2019-10-01 | Outpatient (CLI) | payer BC, OTHER ==
[2019-10-01 11:58] LABS: ABSOLUTE EOSINOPHILS # (AUTO) 0.1 10^3/uL (0.0-0.6); ABSOLUTE MONOCYTES (AUTO) 0.4 10^3/uL (0.1-1.4); ABSOLUTE NEUT (AUTO) 3.8 10^3/uL (1.7-8.2); BASOPHILS % (AUTO) 0.6 % (0-2); EOSINOPHILS % (AUTO) 1.8 % (0-6); HEMOGLOBIN 15.2 g/dL (12.0-15.5); LYMPHOCYTES % (AUTO) 19.3 % (13-45); MEAN CORPUSCULAR HEMOGLOBIN 32.9 pg (27.0-33.4); MEAN CORPUSCULAR HGB CONC 34.5 g/dL (32.0-36.0); MEAN CORPUSCULAR VOLUME 95 fl (80-97); MONOCYTES % (AUTO) 7.4 % (3-13); PLATELET COUNT 233 10^3/uL (150-450); RED BLOOD COUNT 4.62 10^6/uL (3.72-5.28); RED CELL DISTRIBUTION WIDTH 13.5 % (11.5-14.0); SEGMENTED NEUTROPHILS % (AUTO) 70.9 % (42-78); TOTAL CELLS COUNTED % (AUTO) 100 %; WHITE BLOOD COUNT 5.4 10^3/uL (4.0-10.5)
[2019-10-01 12:18] LABS: ALBUMIN 4.1 g/dL (3.5-5.0); ALKALINE PHOSPHATASE 78 U/L (38-126); ANION GAP 7 (5-19); ASPARTATE AMINO TRANSFERASE 26 U/L (14-36); BILIRUBIN,TOTAL 0.5 mg/dL (0.2-1.3); BLOOD UREA NITROGEN 19 mg/dL (7-20); CARBON DIOXIDE 23 mmol/L (22-30); CHLORIDE 110 mmol/L (98-107); GLUCOSE 91 mg/dL (75-110); POTASSIUM 4.7 mmol/L (3.6-5.0); TOTAL PROTEIN 6.9 g/dL (6.3-8.2)
== END ==
LOC: OD 10:50
PROVIDERS: ATTEND Family Medicine Geriatric Medicine
DX: G35 Multiple sclerosis (principal); E53.8 Deficiency of other specified B group vitamins; K21.0 Gastro-esophageal reflux disease with esophagitis
CPT/HCPCS: 36415; 80053; 85025

== ENCOUNTER → 2020-03-31 | Outpatient (CLI) | payer BC, OTHER ==
[2020-03-31 13:50] LABS: ABSOLUTE EOSINOPHILS # (AUTO) 0.1 10^3/uL (0.0-0.6); ABSOLUTE LYMPHOCYTES (AUTO) 0.7 10^3/uL (0.5-4.7); ABSOLUTE MONOCYTES (AUTO) 0.4 10^3/uL (0.1-1.4); ABSOLUTE NEUT (AUTO) 5.1 10^3/uL (1.7-8.2); BASOPHILS % (AUTO) 0.4 % (0-2); EOSINOPHILS % (AUTO) 1.2 % (0-6); HEMATOCRIT 44.7 % (36.0-47.0); HEMOGLOBIN 15.3 g/dL (12.0-15.5); LYMPHOCYTES % (AUTO) 11.6 % (13-45); MEAN CORPUSCULAR HEMOGLOBIN 32.6 pg (27.0-33.4); MEAN CORPUSCULAR HGB CONC 34.3 g/dL (32.0-36.0); MEAN CORPUSCULAR VOLUME 95 fl (80-97); MONOCYTES % (AUTO) 6.5 % (3-13); PLATELET COUNT 218 10^3/uL (150-450); RED CELL DISTRIBUTION WIDTH 13.9 % (11.5-14.0); SEGMENTED NEUTROPHILS % (AUTO) 80.3 % (42-78); TOTAL CELLS COUNTED % (AUTO) 100 %; WHITE BLOOD COUNT 6.4 10^3/uL (4.0-10.5)
[2020-03-31 14:07] LABS: ALBUMIN 4.1 g/dL (3.5-5.0); ALKALINE PHOSPHATASE 86 U/L (38-126); ANION GAP 10 (5-19); ASPARTATE AMINO TRANSFERASE 30 U/L (14-36); BILIRUBIN,DIRECT 0.2 mg/dL (0.0-0.4); BILIRUBIN,TOTAL 0.7 mg/dL (0.2-1.3); BLOOD UREA NITROGEN 19 mg/dL (7-20); CALCIUM 8.8 mg/dL (8.4-10.2); CARBON DIOXIDE 20 mmol/L (22-30); CHLORIDE 111 mmol/L (98-107); GLUCOSE 106 mg/dL (75-110); POTASSIUM 4.9 mmol/L (3.6-5.0); TOTAL PROTEIN 6.8 g/dL (6.3-8.2)
== END ==
LOC: OD 12:39
PROVIDERS: ATTEND Family Medicine Geriatric Medicine
DX: E53.9 Vitamin B deficiency, unspecified (principal); Z79.899 Other long term (current) drug therapy
CPT/HCPCS: 36415; 80053; 85025